=== PATIENT | male | born 1995 | race African-American/Black ===

== ENCOUNTER 2023-08-11 09:30 | Emergency (ER) | payer OTHER, SELFPAY ==
--- NOTE | ~2023-08-11 | XR_ITS ---
EXAMINATION: XR HAND/WRIST, LEFT CLINICAL INFORMATION: Thumb skin avulsion. COMPARISON: None TECHNIQUE: PA, lateral, and oblique views of the left hand and wrist. FINDINGS: Soft tissue swelling around the distal aspect of the thumb without underlying fractures or subluxation. Small well-corticated osseous fragment adjacent to the radial base of the third MCP joint, suggestive sequela of chronic avulsion injury or small degenerative osteophyte. Age indeterminate approximately 0.4 cm osseous fragment along the superior dorsal wrist on the lateral view. Fixation plates and traversing screws in the distal radius and ulna within chronic fractures. No evidence of hardware failure. XR/XR hand wrist LT IMPRESSION: 1. Soft tissue swelling around the distal aspect of the thumb without underlying acute fractures or subluxation. 2. Age indeterminate osseous fragment along the superior dorsal wrist on the lateral view, underlying avulsion fracture is not exclude. Correlate for point tenderness.
[2023-08-11 09:40] VITALS: BP 103/70; PULSE 61; RESP 15; TEMP 36.6; O2SAT 99; BMI 23.1
--- NOTE | 2023-08-11 10:56 | ED.GENADULT ---
HPI - General Adult General Chief complaint: Wound/Laceration Stated complaint: l thumb laceration at work Time Seen by Provider: 08/11/23 10:48 Source: patient Mode of arrival: ambulatory Limitations: no limitations History of Present Illness HPI narrative: 28-year-old healthy male presents to ED for left thumb laceration. Patient states he was cutting some wood for roof rafters and the saw cut his left thumb tip. Patient has complete range of motion of finger. Patient denies any numbness/ tingling. Patient has sensation. Related Data Previous Rx's ?Medication ?Instructions ?Recorded cephalexin 500 mg capsule 500 mg PO QID 7 days #28 caps 08/11/23 Allergies Allergy/AdvReac Type Severity Reaction Status Date / Time No Known Allergies Allergy Verified 08/11/23 09:41 Review of Systems Review of Systems: Left index finger laceration Yes all other systems are reviewed and are negative [facility] Social History Social History Advance Directives: No Advance Directives Information Provided: No Physical Exam ED Vital Signs: Vital Signs - 24 hr 08/11/23 09:40 Temperature 98 F Pulse Rate 61 Respiratory Rate 15 Blood Pressure 103/70 Pulse Oximetry 99 Oxygen Delivery Method Room Air BMI result Body Mass Index 23.1 Const General: cooperative, healthy appearing, comfortable, no acute distress, well developed, alert and awake Orientation/consciousness: oriented to person, oriented to place, oriented to time and patient oriented x3 HENMT Head: Yes normal to inspection, Yes No palpable skull fracture present, Yes normocephalic and Yes atraumatic Eyes General: appearance normal, both eyes and all related structures Neck Neck: Yes normal visual inspection, Yes full ROM, Yes no lymphadenopathy, Yes no meningeal signs, Yes trachea midline, Yes supple, No anterior neck swelling and No tender Chest Chest palpation & inspection: normal inspection of the chest and normal palpation of entire chest wall Resp Effort & Inspection: normal respiratory effort and able to speak in complete sentences Auscultation: clear to auscultation bilaterally Cardio Jugular venous distension: no JVD Heart sounds: S1 normal heart sound present and S2 normal heart sound present GI Inspection: Yes normal to inspection Palpation (GI): Soft to palpation, not firm, nontender, no guarding and not rigid General: No CVA tenderness and Yes no CVA tenderness Back/Spine/Pelvis Back: no CVA tenderness, No CVA tenderness and No back tenderness Skin Other: left thumb skin avulsion General skin exam: no rashes or lesions noted, elasticity normal and turgor normal Neuro General: oriented to person, oriented to place, oriented to time, patient oriented x3, gait normal, tone normal, moves all extremities, Normal light touch and pain sensation, no meningeal signs, no focal motor deficits, CN's II-XI intact bilaterally and normal sensation to monofilament Extrem General: Yes normal to inspection, Yes full ROM and Yes capillary refill normal Hand/finger images: 1. positive for skin avulsion. Negative for bone exposure. Negative for nail bed injury. Patient has complete range of motion of finger. Capillary refill attack. negative for signs of tendon nerve injury. Rest of extremity normal. Motor/neuro /vascular exam intact Psych Appearance: grossly normal, well kempt and not disheveled Medical Decision Making Medical Decision Making MDM Narrative: 28-year-old male presents to ED for left thumb laceration caused by saw. Physical exam indicates skin avulsion. Both sent for x-ray to make sure there is no tuft fracture. Patient up-to-date with Tdap. 12:29: X-ray negative for tuft fracture. No need for laceration repair skin avulsions placed in Xeroform gauze compression wrapping. Patient will be discharged with antibiotics due to cut by saw. No need for Tdap patient up-to-date. negative for any signs of motor neurovascular injury Differential Diagnosis Differential Diagnoses: The differential diagnosis associated with the presentation includes ( tuft fracture, skin avulsion, partial amputation) Admission/Observation Consideration of admission/observation: Escalation of care including admission/observation considered Independent Historian Clinical information obtained from an independent historian. History obtained from or confirmed by: Other ( patient) External Record Review External record reviewed: Other ( prior visits) Prescription Management I considered prescription management with: Antibiotic Discharge Plan Discharge Clinical Impression: Avulsion of skin Patient Disposition: Home, Self-Care Instructions: Skin Avulsion (ED) Additional Instructions: no laceration repair indicated. You will be discharged with antibiotics. Recommend follow-up with the primary care provider. Return to the ED immediately for redness, pus discharge, foul odor, swelling, bluish black discoloration, fever, chills, inability to move finger, profuse bleeding, or any other concerning symptoms. Prescriptions: New cephalexin 500 mg capsule 500 mg PO QID 7 Days Qty: 28 0RF Referrals: [facility] [Outside] (left finger skin avulsion that occurred at work) Stand Alone Forms: Work/School Release Interventions: ED Discharge Assessment Last Done: 08/11/23 12:53 Discharge Date/Time: 08/11/23 12:54 Print Language: Bulgarian
[2023-08-11 12:53] VITALS: BP 103/70; PULSE 61; RESP 18; TEMP 36.6; O2SAT 99
== END 2023-08-11 12:54 | disposition home or self-care (01) ==
PROVIDERS: Emergency Provider Emergency Medicine
DX: S61.002A Unspecified open wound of left thumb without damage to nail, initial encounter (principal); W27.8XXA Contact with other nonpowered hand tool, initial encounter; Y93.9 Activity, unspecified; Y92.9 Unspecified place or not applicable; Y99.9 Unspecified external cause status
CPT/HCPCS: 73110; 73130; 99283